=== PATIENT | female | born 1995 | race Two or more races ===

== ENCOUNTER → 2019-08-23 | Outpatient (CLI) | payer OTHER | END | disposition home or self-care (01) | LOC: PRENATAL 10:45 | DX: O35.3XX1 Maternal care for (suspected) damage to fetus from viral disease in mother, fetus 1 (principal); O26.842 Uterine size-date discrepancy, second trimester; O35.0XX1 Maternal care for (suspected) central nervous system malformation in fetus, fetus 1; Z3A.23 23 weeks gestation of pregnancy ==

== ENCOUNTER → 2019-11-20 | Outpatient (CLI) | payer OTHER | END | disposition home or self-care (01) | LOC: PRENATAL 14:00 | DX: O26.843 Uterine size-date discrepancy, third trimester (principal); O36.8131 Decreased fetal movements, third trimester, fetus 1 ==

== ENCOUNTER 2019-12-13 17:56 | Inpatient (IN) | payer OTHER ==
[~2019-12-13] VITALS: Ht 172.7 cm; Wt 55.3 kg
[2019-12-13] MEDS ORDERED: PRENATAL 19 TA1 EACH PO (19:59)
[2019-12-13] MEDS ORDERED: ASPIR 8181 MG PO (20:00)
== END 2019-12-16 14:42 | disposition home or self-care (01) | DRG 805 ==
LOC: LDR 17:56 → OB/GYN 12-14 00:56
PROVIDERS: ADMIT Obstetrics & Gynecology
PROC: 10E0XZZ Delivery of Products of Conception, External Approach (ICD-10-PCS; principal; 2019-12-13)
PROC: 0KQM0ZZ Repair Perineum Muscle, Open Approach (ICD-10-PCS; 2019-12-13)
PROC: 0W8NXZZ Division of Female Perineum, External Approach (ICD-10-PCS; 2019-12-13)
PROC: 4A1HXFZ Monitoring of Products of Conception, Cardiac Rhythm, External Approach (ICD-10-PCS; 2019-12-13)
PROC: 3E033VJ Introduction of Other Hormone into Peripheral Vein, Percutaneous Approach (ICD-10-PCS; 2019-12-13)
DX: O98.82 Other maternal infectious and parasitic diseases complicating childbirth (principal); O99.42 Diseases of the circulatory system complicating childbirth; Z37.0 Single live birth; B95.1 Streptococcus, group B, as the cause of diseases classified elsewhere; I34.1 Nonrheumatic mitral (valve) prolapse; O70.1 Second degree perineal laceration during delivery; Z3A.39 39 weeks gestation of pregnancy